=== PATIENT | female | born 1995 | race Two or more races ===

== ENCOUNTER → 2023-06-20 14:29 | Outpatient (BNVA) | payer SELFPAY | DX: R76.11 Nonspecific reaction to tuberculin skin test without active tuberculosis (principal) ==

== ENCOUNTER 2024-06-03 13:50 | Emergency (ER) | payer OTHER, SELFPAY ==
--- NOTE | ~2024-06-03 | XR_ITS ---
EXAMINATION: XR THORACIC SPINE CLINICAL INFORMATION: pain COMPARISON: None available. TECHNIQUE: 3 views of the thoracic spine were obtained. FINDINGS: Normal alignment with no fracture. Normal thoracic kyphosis. Minimal degenerative disc disease with small anterior endplate osteophytes of the thoracic spine. XR/XR thoracic spine 2V IMPRESSION: Minimal degenerative disc disease. Normal alignment with no fracture. Electronically signed by: Farshad Tan MD 06/03/2024 04:27 PM [facility]
[2024-06-03 14:12] VITALS: BP 118/59; PULSE 84; RESP 16; TEMP 36; O2SAT 98; BMI 34.0
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
[2024-06-03 16:42] VITALS: BP 117/72; PULSE 76; RESP 16; TEMP 36.5; O2SAT 100
[2024-06-03 18:44] VITALS: BP 117/72; PULSE 76; RESP 16; TEMP 36.5; O2SAT 100
== END 2024-06-03 18:45 | disposition home or self-care (01) ==
PROVIDERS: Emergency Provider Emergency Medicine; PCP Internal Medicine
DX: S29.012A Strain of muscle and tendon of back wall of thorax, initial encounter (principal); V43.52XA Car driver injured in collision with other type car in traffic accident, initial encounter; Y93.89 Activity, other specified; Y92.410 Unspecified street and highway as the place of occurrence of the external cause; Y99.8 Other external cause status
CPT/HCPCS: 72070; 99283

== ENCOUNTER 2025-01-19 20:46 | Emergency (ER) | payer OTHER, SELFPAY ==
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
[2025-01-19 21:25] VITALS: BP 111/59; PULSE 91; RESP 17; TEMP 36.8; O2SAT 98; BMI 35.4
--- NOTE | 2025-01-19 21:32 | ECG_ITS ---
Test Reason : DIZZINESS Blood Pressure : */* mmHG Vent. Rate : 71 BPM Atrial Rate : 71 BPM P-R Int : 98 ms QRS Dur : 92 ms QT Int : 398 ms P-R-T Axes : 26 4 22 degrees QTcB Int : 432 ms Sinus rhythm with short AK Otherwise normal ECG No previous ECGs available Referred By: Generic ED Physician Electronically Signed By: KEVIN MONCADA
[2025-01-19 22:16] LABS: MANUAL DIFF FLAG NO
[2025-01-19 22:17] LABS: Hematocrit 30.5 % (37.0-47.0); Hemoglobin 10.5 g/dl (12.0-16.0); Imm Gran Abs Auto 0.02 X10*3/uL (0.00-0.03); Imm Gran Pct Auto 0.2 % (0.0-0.4); Lymphocytes Absolute Auto 3.1 X10*3/uL (1.2-4.9); Mean Corpuscular HGB Conc 34.4 g/dl (31.0-35.0); Mean Corpuscular Hemoglobin 30.8 pg (27.0-33.0); Mean Corpuscular Volume 89.4 fL (80.0-98.0); NRBC Abs Auto 0.000 X10*3/uL (0.0-0.012); NRBC Pct Auto 0.0 /100WBC (0.0-0.2); Platelet Count 248 X10*3/uL (160-400); Red Blood Count 3.41 X10*6/uL (4.20-5.50); White Blood Count 8.5 X10*3/uL (4.8-10.8)
[2025-01-19 22:21] LABS: Appearance Urine Clear; Glucose Urine UA Negative (Negative); PH 7.0 (5.0-9.0); Specific Gravity - Urine >= 1.030 (1.005-1.025)
[2025-01-19 22:22] LABS: UPreg QC Valid YES
[2025-01-19 22:31] LABS: Alanine Aminotransferase 22 U/L (0-31); Albumin Level 4.1 g/dL (3.5-5.0); Alkaline Phosphatase 56 U/L (39-117); Anion Gap 9 (12-20); Aspartate Amino Transferase 18 U/L (5-31); Blood Urea Nitrogen 15 mg/dL (9-16); Calcium 8.6 mg/dL (8.4-10.2); Carbon Dioxide 26 mmol/L (22-29); Chloride 111 mmol/L (96-108); Creatinine Clr Calc Pharmacy 150.0; Estimated Glomerular Filt Rate > 60; Potassium 3.3 mmol/L (3.3-5.1); Sodium 143 mmol/L (135-145); Total Protein 6.5 g/dL (6.5-8.0)
[2025-01-20 02:36] VITALS: BP 111/73; PULSE 80; RESP 21; TEMP 36.8; O2SAT 99
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
[2025-01-20 05:21] VITALS: BP 106/74; PULSE 88; RESP 18; O2SAT 98
[2025-01-20 05:22] VITALS: BP 106/74; PULSE 88; RESP 18; TEMP 36.6; O2SAT 98
== END 2025-01-20 05:36 | disposition home or self-care (01) ==
PROVIDERS: Emergency Provider Emergency Medicine; PCP Physician Assistant Medical
DX: N94.12 Deep dyspareunia (principal); S16.1XXA Strain of muscle, fascia and tendon at neck level, initial encounter; R30.9 Painful micturition, unspecified; R51.9 Headache, unspecified; S06.0XAA Concussion with loss of consciousness status unknown, initial encounter; Y04.8XXA Assault by other bodily force, initial encounter; Y93.9 Activity, unspecified; Y92.9 Unspecified place or not applicable; Y99.9 Unspecified external cause status
CPT/HCPCS: 36415; 71111; 80053; 81003; 81025; 85025; 93005; 99283; 99284

== ENCOUNTER → 2025-01-19 21:32 | Outpatient (BNV) | payer OTHER, SELFPAY | PROVIDERS: Emergency Provider Emergency Medicine; PCP Physician Assistant Medical; Visit Provider Internal Medicine | DX: R42 Dizziness and giddiness (principal) | CPT/HCPCS: 93010 ==

== ENCOUNTER → 2025-01-19 21:57 | Outpatient (BNV) | payer OTHER, SELFPAY | PROVIDERS: PCP Physician Assistant Medical; Visit Provider Radiology Diagnostic Radiology | DX: S29.9XXA Unspecified injury of thorax, initial encounter (principal) | CPT/HCPCS: 71111 ==